=== PATIENT | male | born 1980 | race Caucasian/White ===

== ENCOUNTER 2018-06-30 21:14 | Inpatient (IN) | payer MEDICARE, OTHER ==
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
[2018-06-30 21:47] LABS: HEMOGLOBIN 9.8 gm/dL (12-16); LYMPHOCYTE ABSOLUTE 1.1 Th/cmm (1.5-3.0)
[2018-06-30 21:50] LABS: % BASOPHILS 1.7 % (0.0-2.0); % EOSINOPHILS 2.1 % (0.0-5.0); % LYMPHOCYTES 16.6 % (20.0-50.0); % MONOCYTES 8.7 % (2.0-10.0); % NEUTROPHILS 70.9 % (40.0-80.0); BASOPHILE ABSOLUTE 0.1 Th/cumm (0-0.2); EOSINOPHILE ABSOLUTE 0.1 Th/cmm (0.1-0.4); HEMATOCRIT 30.9 % (41.0-60); MEAN CORPUSCULAR HEMOGLOBIN 20.6 pg (26.0-30.0); MEAN CORPUSCULAR HGB CONC 31.5 pg (28.0-36.0); MEAN PLATELET VOLUME 8.8 fl; MONOCYTE ABSOLUTE 0.6 Th/cmm (0.3-1.0); NEUTROPHILE ABSOLUTE 4.7 Th/cmm (1.8-8.0); PLATELET COUNT 309 Th/cmm (150-400); RED BLOOD COUNT 4.74 Mil/cmm (4.30-5.70); RED CELL DISTRIBUTION WIDTH 17.5 % (11.5-20.0); WHITE BLOOD COUNT 6.6 Th/cmm (4.8-10.8)
[2018-06-30 21:52] LABS: MEAN CELL VOLUME 65.3 fl (80-99)
[2018-06-30 22:01] LABS: ALB/GLOB RATIO 1.4 (1.0-1.8); ALKALINE PHOSPHATASE 54 U/L (34-104); ANION GAP 12.4 (7.0-16.0); BILIRUBIN,TOTAL 0.5 mg/dL (0.3-1.0); BUN - UREA NITROGEN 9 mg/dL (7-25); CALCIUM SERUM 9.2 mg/dL (8.6-10.3); CARBON DIOXIDE 27.3 mEq/L (21.0-31.0); CHLORIDE 101 mEq/L (98-107); CREATININE - SERUM 0.8 mg/dL (0.7-1.3); GFR AFRICAN-AMERICAN > 60.0 ml/min (>90); GFR NON AFRICAN-AMERICAN > 60.0 ml/min; GLUCOSE 87 mg/dL (70-105); POTASSIUM SERUM 3.7 mEq/L (3.5-5.1); SGOT 11 U/L (13-39); SGPT/ALT 7 U/L (7-52); SODIUM SERUM 137 mEq/L (136-145); TOTAL PROTEIN,SERUM 6.8 gm/dL (6.0-8.3)
[2018-07-01] MEDS ORDERED: Sodium Chloride 0.9% 1,000 ML IV ONE ×2 (00:04→02:35)
[2018-07-01] MEDS ORDERED: Piperacillin Sodium/Tazobact 3.375 gm Vial IV ONE (00:25)
[2018-07-01] MEDS ORDERED: Triple Antibiotic 0.94 gm Pkt TP ONE (00:45)
[2018-07-01] MEDS ORDERED: Triple Antibiotic 0.94 gm Pkt TP STA (01:03)
[2018-07-01 01:31] LABS: URINE SOURCE CLEAN C
[2018-07-01 01:34] LABS: URINE BILIRUBIN NEGATIVE (NEGATIVE); URINE BLOOD NEGATIVE (NEGATIVE); URINE GLUCOSE (UA) NEGATIVE (NEGATIVE); URINE KETONE NEGATIVE (NEGATIVE); URINE LEUKOCYTE ESTERASE NEGATIVE (NEGATIVE); URINE NITRATE NEGATIVE (NEGATIVE); URINE PROTEIN NEGATIVE (NEGATIVE); URINE UROBILINOGEN 0.2 E.U./dL (0.2 - 1.0)
[2018-07-01 01:37] LABS: URINE CLARITY CLEAR (CLEAR); URINE COLOR YELLOW; URINE MICROSCOPIC INDICATED? NO
[2018-07-01 03:48] VITALS: BP 97/61
--- NOTE | 2018-07-01 08:25 | Diagnostic Imaging Report ---
Exam: Left knee joint HISTORY: Status post fall Multiple views of the left knee joint reviewed. The study demonstrates no evidence for acute fracture or dislocation. There is no evidence for joint effusion. No soft tissue swelling is noted. The patella is intact. Small 8 mm degenerative calcification is noted in suprapatellar area IMPRESSION essentially unremarkable examination of left knee joint.
[2018-07-01] MEDS: Vancomycin HCl 1.5 GM in Sodium Chloride 0.9% 500 ML IV SCH (14:02)
[2018-07-01] MEDS ORDERED: Morphine Sulfate 2 mg/mL 1mL Syr IVP PRN (19:01)
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
--- NOTE | 2018-07-01 20:39 | Internal Medicine Prog Note ---
Internal Medicine Subjective - Subjective Service Date: 07/01/18 Patient seen and examined:: with staff, chart reviewed Patient is:: awake, other (Severe Bilateral knee pain, Bilateral leg wounds with some skin lesions.) Patient Complaints of:: other (Hx of Cerebral palsy.) Per staff patient has:: other (Severe Neuropathy.) Internal Medicine Objective - Results Result Diagrams: 06/30/18 21:37 06/30/18 21:37 Recent Labs: Laboratory Last Values WBC 6.6 Th/cmm (4.8-10.8) 06/30/18 21:37 RBC 4.74 Mil/cmm (4.30-5.70) 06/30/18 21:37 Hgb 9.8 gm/dL (12-16) L 06/30/18 21:37 Hct 30.9 % (41.0-60) L 06/30/18 21:37 MCV 65.3 fl (80-99) L 06/30/18 21:37 MCH 20.6 pg (26.0-30.0) L 06/30/18 21:37 MCHC Differential 31.5 pg (28.0-36.0) 06/30/18 21:37 RDW 17.5 % (11.5-20.0) 06/30/18 21:37 Plt Count 309 Th/cmm (150-400) 06/30/18 21:37 MPV 8.8 fl 06/30/18 21:37 Neutrophils % 70.9 % (40.0-80.0) 06/30/18 21:37 Lymphocytes % 16.6 % (20.0-50.0) L 06/30/18 21:37 Monocytes % 8.7 % (2.0-10.0) 06/30/18 21:37 Eosinophils % 2.1 % (0.0-5.0) 06/30/18 21:37 Basophils % 1.7 % (0.0-2.0) 06/30/18 21:37 Sodium 137 mEq/L (136-145) 06/30/18 21:37 Potassium 3.7 mEq/L (3.5-5.1) 06/30/18 21:37 Chloride 101 mEq/L (98-107) 06/30/18 21:37 Carbon Dioxide 27.3 mEq/L (21.0-31.0) 06/30/18 21:37 Anion Gap 12.4 (7.0-16.0) 06/30/18 21:37 BUN 9 mg/dL (7-25) 06/30/18 21:37 Creatinine 0.8 mg/dL (0.7-1.3) 06/30/18 21:37 Est GFR ( Amer) > 60.0 ml/min (>90) 06/30/18 21:37 Est GFR (Non-Af Amer) > 60.0 ml/min 06/30/18 21:37 BUN/Creatinine Ratio 11.3 06/30/18 21:37 Glucose 87 mg/dL (70-105) 06/30/18 21:37 Calcium 9.2 mg/dL (8.6-10.3) 06/30/18 21:37 Total Bilirubin 0.5 mg/dL (0.3-1.0) 06/30/18 21:37 AST 11 U/L (13-39) L 06/30/18 21:37 ALT 7 U/L (7-52) 06/30/18 21:37 Alkaline Phosphatase 54 U/L (34-104) 06/30/18 21:37 Total Protein 6.8 gm/dL (6.0-8.3) 06/30/18 21:37 Albumin 4.0 gm/dL (4.2-5.5) L 06/30/18 21:37 Globulin 2.8 gm/dL 06/30/18 21:37 Albumin/Globulin Ratio 1.4 (1.0-1.8) 06/30/18 21:37 Urine Source CLEAN C 06/30/18 22:30 Urine Color YELLOW 06/30/18 22:30 Urine Clarity CLEAR (CLEAR) 06/30/18 22:30 Urine pH 8.0 (4.6 - 8.0) 06/30/18 22:30 Ur Specific [place] 1.015 (1.005-1.030) 06/30/18 22:30 Urine Protein NEGATIVE mg/dL (NEGATIVE) 06/30/18 22:30 Urine Glucose (UA) NEGATIVE mg/dL (NEGATIVE) 06/30/18 22:30 Urine Ketones NEGATIVE mg/dL (NEGATIVE) 06/30/18 22:30 Urine Blood NEGATIVE (NEGATIVE) 06/30/18 22:30 Urine Nitrate NEGATIVE (NEGATIVE) 06/30/18 22:30 Urine Bilirubin NEGATIVE (NEGATIVE) 06/30/18 22:30 Urine Urobilinogen 0.2 E.U./dL (0.2 - 1.0) 06/30/18 22:30 Ur Leukocyte Esterase NEGATIVE (NEGATIVE) 06/30/18 22:30 - Physical Exam Vitals and I&O: Vital Signs Temp 100.3 F 07/01/18 20:00 Pulse 79 07/01/18 20:00 Resp 20 07/01/18 20:00 BP 97/55 07/01/18 20:00 Pulse Ox 95 07/01/18 20:00 Intake & Output 07/01/18 07/01/18 07/02/18 06:59 18:59 06:59 Intake Total 50 1375 Output Total 1500 Balance 50 -125 Weight (lbs) 113.398 kg 113.398 kg Intake: Intake, IV Amount 50 Piperacillin Sodium/ 50 Tazobact 3.375 gm In Sodium Chloride 0.9% 50 ml @ 100 mls/hr IV Q6HR [facility] Rx#:[id number] Oral 1375 Output: Urine 1500 Other: Weight Source [facility] Active Medications: Current Medications Gabapentin (Neurontin) 300 mg PO BID [facility] Stop: 08/31/18 08:59 Piperacillin Sod/Tazobactam (Sod 3.375 gm/ Sodium Chloride) 50 mls @ 100 mls/ hr IV Q6HR [facility] Stop: 08/30/18 11:59 Last Admin: 07/01/18 18:29 Dose: 100 mls/hr Vancomycin HCl 1.5 gm/ Sodium (Chloride) 500 mls @ 250 mls/hr IV Q12H [facility] Stop: 08/30/18 12:59 Last Admin: 07/01/18 14:02 Dose: 250 mls/hr Ibuprofen (Advil) 400 mg PO QID PRN PRN Reason: Pain (Mild) Stop: 08/30/18 18:58 Miscellaneous (Zosyn Iv Per Pharmacy) 1 ea MC PRN PRN PRN Reason: PROTOCOL Stop: 08/30/18 11:21 Miscellaneous (Vancomycin Iv Per Pharmacy) 1 ea PRN PRN PRN Reason: Leg Swelling Stop: 08/30/18 11:21 Morphine Sulfate (Morphine) 1 mg IVP Q2HR PRN PRN Reason: Pain (Moderate) Stop: 08/30/18 19:00 Morphine Sulfate (Morphine) 2 mg IVP Q4HR PRN PRN Reason: Pain (Severe) Stop: 08/30/18 19:06 Ondansetron HCl (Zofran Odt) 4 mg PO Q6H PRN PRN Reason: Nausea / Vomiting Stop: 08/30/18 19:42 Physical Exam: 38 y/o homeless male patient has hx of cerebral palsy. Patient c/o severe bilateral knee pain and bilateral knee wounds with some skin lesions. General: weak, other (Severe neuropathy.) HEENT: NC/AT, PERRLA Neck: Supple, No JVD Lungs: CTAB Cardiovascular: RRR, Normal S1 Abdomen: soft, non-tender Extremities: edema, pain, other Neurological: alert, muscle weakness, unsteady (Multiple skin lesions on bilateral leg pain, Hx of Arthritis.) Internal Medicine Assmt/Plan - Assessment Assessment: Arthritis Severe Neuropathy Severe Bilateral leg pain Bilateral leg wounds with some skin lesions Hx of Cerebral palsy - Plan Plan: Conttinuation of care Monitor Vitals, Labs, Diet Continue IV antibiotics and meds as directed Fall precaution Followup with Dr. Sharan Harrison and Dr. Lupillo Harrison Pain management Continue present care management Nutritional Asmnt/Malnutr-PDOC - Dietary Evaluation Malnutrition Findings (Please click <Entered> for more info): see orders
[2018-07-01] MEDS: Morphine Sulfate 2 mg/mL 1mL Syr IVP PRN (21:00)
[2018-07-02] MEDS: Vancomycin HCl 1.5 GM in Sodium Chloride 0.9% 500 ML IV SCH ×2 (00:35→13:02)
[2018-07-02] MEDS: Morphine Sulfate 2 mg/mL 1mL Syr IVP PRN ×4 (00:40→20:57)
--- NOTE | 2018-07-02 04:49 | Consultation ---
DATE OF CONSULTATION: 07/01/2018 INFECTIOUS DISEASE CONSULTATION REFERRING PHYSICIAN: Angelito Sorensen M.D. REASON FOR CONSULTATION: Bilateral leg cellulitis and wounds. HISTORY OF PRESENT ILLNESS: The patient is a 38-year-old male with past medical history of arthritis and neuropathy, developed bilateral leg wounds with pain. It was associated with some redness. ID consult was called for further antibiotic management. Meanwhile, the patient was already started on vancomycin and Zosyn. Blood culture so far negative. On initial evaluation the patient's temperature was 97.9, it went up to 100.3 degrees Fahrenheit. His WBC count is 6600. PAST MEDICAL HISTORY: Includes arthritis, cerebral palsy, neuropathy, homelessness. ALLERGIES: NKDA. MEDICATIONS: As per medication reconciliation sheet. Antibiotic bishop, the patient is on vancomycin and Zosyn. FAMILY HISTORY: Not available. REVIEW OF SYSTEMS: GENERAL: The patient has low-grade fever. No chills. No diaphoresis. No generalized weakness. HEENT: No diplopia. No photophobia. No sore throat. RESPIRATORY: No cough. No shortness of breath. CARDIOVASCULAR: No chest pain. No palpitation. GASTROINTESTINAL: No nausea. No vomiting. No diarrhea. No constipation. GENITOURINARY: No dysuria. NEUROLOGIC: No headache. No dizziness. No focal weakness. SKIN: The patient has ulcers on both the lower extremities. LABORATORY DATA: Current lab shows WBC count is 6600, hemoglobin is 9.8, hematocrit 30.9, platelets are 309,000, neutrophils 70.9%. Sodium 137, potassium 3.7, chloride 101, bicarbonate is 27, BUN is 9, creatinine 0.8, glucose is 87. Urinalysis shows negative nitrite and negative leukocyte esterase. IMPRESSION: 1. Right leg wound and right leg cellulitis. 2. Left leg wound and left leg cellulitis. 3. Cerebral palsy. 4. Arthritis. RECOMMENDATIONS: We will continue vancomycin and Zosyn, and depending on the wound culture and clinical course, we will define final antibiotic therapy. Thank you, Dr. Sorensen for involving me in taking care of this patient. JOB# [id number] [facility]
[2018-07-02 07:34] LABS: ALB/GLOB RATIO 1.2 (1.0-1.8); ALBUMIN 3.5 gm/dL (4.2-5.5); ALKALINE PHOSPHATASE 44 U/L (34-104); ANION GAP 11.7 (7.0-16.0); BILIRUBIN,TOTAL 0.4 mg/dL (0.3-1.0); BUN - UREA NITROGEN 7 mg/dL (7-25); CALCIUM SERUM 8.6 mg/dL (8.6-10.3); CARBON DIOXIDE 23.1 mEq/L (21.0-31.0); CHLORIDE 108 mEq/L (98-107); CREATININE - SERUM 0.7 mg/dL (0.7-1.3); GFR AFRICAN-AMERICAN > 60.0 ml/min (>90); GFR NON AFRICAN-AMERICAN > 60.0 ml/min; GLUCOSE 78 mg/dL (70-105); POTASSIUM SERUM 3.8 mEq/L (3.5-5.1); SGOT 9 U/L (13-39); SGPT/ALT 7 U/L (7-52); SODIUM SERUM 139 mEq/L (136-145); TOTAL PROTEIN,SERUM 6.4 gm/dL (6.0-8.3)
[2018-07-02 12:11] LABS: HEMOGLOBIN 9.3 gm/dL (12-16); MEAN CORPUSCULAR HEMOGLOBIN 20.3 pg (26.0-30.0); MEAN CORPUSCULAR HGB CONC 30.9 pg (28.0-36.0); MEAN PLATELET VOLUME 10.6 fl; PLATELET COUNT 253 Th/cmm (150-400); RED BLOOD COUNT 4.55 Mil/cmm (4.30-5.70); RED CELL DISTRIBUTION WIDTH 17.5 % (11.5-20.0); WHITE BLOOD COUNT 6.5 Th/cmm (4.8-10.8)
[2018-07-02 12:17] LABS: BAND NEUTROPHILE 0 % (0-10); BASOPHIL 0 % (0-3); EOSINOPHIL 2 % (0-5); LYMPHOCYTE 18 % (20-50); MONOCYTE 6 % (2-10); NEUTROPHILS 74 % (40-80)
--- NOTE | 2018-07-02 13:21 | Internal Medicine Prog Note ---
Internal Medicine Subjective - Subjective Service Date: 07/02/18 Patient is:: awake, other (Severe Bilateral knee pain, Bilateral leg wounds with some skin lesions.) Patient Complaints of:: other (Hx of Cerebral palsy.) Per staff patient has:: other (Severe Neuropathy.) Internal Medicine Objective - Results Result Diagrams: 07/02/18 06:16 07/02/18 06:16 Recent Labs: Laboratory Last Values WBC 6.5 Th/cmm (4.8-10.8) 07/02/18 06:16 RBC 4.55 Mil/cmm (4.30-5.70) 07/02/18 06:16 Hgb 9.3 gm/dL (12-16) L 07/02/18 06:16 Hct 30.0 % (41.0-60) L 07/02/18 06:16 MCV 65.3 fl (80-99) L 06/30/18 21:37 MCH 20.3 pg (26.0-30.0) L 07/02/18 06:16 MCHC Differential 30.9 pg (28.0-36.0) 07/02/18 06:16 RDW 17.5 % (11.5-20.0) 07/02/18 06:16 Plt Count 253 Th/cmm (150-400) 07/02/18 06:16 MPV 10.6 fl 07/02/18 06:16 Add Manual Diff YES 07/02/18 06:16 Neutrophils % DESK MAKER 07/02/18 06:16 Band Neutrophils % 0 % (0-10) 07/02/18 06:16 Lymphocytes % DESK MAKER 07/02/18 06:16 Monocytes % DESK MAKER 07/02/18 06:16 Eosinophils % DESK MAKER 07/02/18 06:16 Basophils % DESK MAKER 07/02/18 06:16 Neutrophils (Manual) 74 % (40-80) 07/02/18 06:16 Lymphocytes 18 % (20-50) L 07/02/18 06:16 Monocytes 6 % (2-10) 07/02/18 06:16 Eosinophils 2 % (0-5) 07/02/18 06:16 Basophils 0 % (0-3) 07/02/18 06:16 Microcytosis 3+ 07/02/18 06:16 Sodium 139 mEq/L (136-145) 07/02/18 06:16 Potassium 3.8 mEq/L (3.5-5.1) 07/02/18 06:16 Chloride 108 mEq/L (98-107) H 07/02/18 06:16 Carbon Dioxide 23.1 mEq/L (21.0-31.0) 07/02/18 06:16 Anion Gap 11.7 (7.0-16.0) 07/02/18 06:16 BUN 7 mg/dL (7-25) 07/02/18 06:16 Creatinine 0.7 mg/dL (0.7-1.3) 07/02/18 06:16 Est GFR ( Amer) > 60.0 ml/min (>90) 07/02/18 06:16 Est GFR (Non-Af Amer) > 60.0 ml/min 07/02/18 06:16 BUN/Creatinine Ratio 10.0 07/02/18 06:16 Glucose 78 mg/dL (70-105) 07/02/18 06:16 Calcium 8.6 mg/dL (8.6-10.3) 07/02/18 06:16 Total Bilirubin 0.4 mg/dL (0.3-1.0) 07/02/18 06:16 AST 9 U/L (13-39) L 07/02/18 06:16 ALT 7 U/L (7-52) 07/02/18 06:16 Alkaline Phosphatase 44 U/L (34-104) 07/02/18 06:16 Total Protein 6.4 gm/dL (6.0-8.3) 07/02/18 06:16 Albumin 3.5 gm/dL (4.2-5.5) L 07/02/18 06:16 Globulin 2.9 gm/dL 07/02/18 06:16 Albumin/Globulin Ratio 1.2 (1.0-1.8) 07/02/18 06:16 Urine Source CLEAN C 06/30/18 22:30 Urine Color YELLOW 06/30/18 22:30 Urine Clarity CLEAR (CLEAR) 06/30/18 22:30 Urine pH 8.0 (4.6 - 8.0) 06/30/18 22:30 Ur Specific [place] 1.015 (1.005-1.030) 06/30/18 22:30 Urine Protein NEGATIVE mg/dL (NEGATIVE) 06/30/18 22:30 Urine Glucose (UA) NEGATIVE mg/dL (NEGATIVE) 06/30/18 22:30 Urine Ketones NEGATIVE mg/dL (NEGATIVE) 06/30/18 22:30 Urine Blood NEGATIVE (NEGATIVE) 06/30/18 22:30 Urine Nitrate NEGATIVE (NEGATIVE) 06/30/18 22:30 Urine Bilirubin NEGATIVE (NEGATIVE) 06/30/18 22:30 Urine Urobilinogen 0.2 E.U./dL (0.2 - 1.0) 06/30/18 22:30 Ur Leukocyte Esterase NEGATIVE (NEGATIVE) 06/30/18 22:30 Vancomycin Trough 11.2 ug/mL (5-10) H 07/02/18 12:00 - Physical Exam Vitals and I&O: Vital Signs Temp 97.5 F 07/02/18 12:00 Pulse 67 07/02/18 12:00 Resp 19 07/02/18 12:00 BP 97/53 07/02/18 12:00 Pulse Ox 100 07/02/18 12:00 Intake & Output 07/01/18 07/02/18 07/02/18 18:59 06:59 18:59 Intake Total 600 1975 Output Total 1500 Balance 600 475 Weight (lbs) 250 lb Intake: Intake, IV Amount 600 600 Piperacillin Sodium/ 100 100 Tazobact 3.375 gm In Sodium Chloride 0.9% 50 ml @ 100 mls/hr IV Q6HR [facility] Rx#:[id number] Vancomycin HCl 1.5 gm In 500 500 Sodium Chloride 0.9% 500 ml @ 250 mls/hr IV Q12H [facility] Rx#:[id number] Oral 1375 Output: Urine 1500 Other: Weight Source Bedscale Active Medications: Current Medications [place] Oil/[place] Balsam/Trypsin (Venelex) 1 appl TP DAILY [facility] Stop: 08/31/18 12:59 Gabapentin (Neurontin) 300 mg PO BID [facility] Stop: 08/31/18 08:59 Last Admin: 07/02/18 08:51 Dose: 300 mg Piperacillin Sod/Tazobactam (Sod 3.375 gm/ Sodium Chloride) 50 mls @ 100 mls/ hr IV Q6HR [facility] Stop: 08/30/18 11:59 Last Admin: 07/02/18 12:24 Dose: 100 mls/hr Vancomycin HCl 1.5 gm/ Sodium (Chloride) 500 mls @ 250 mls/hr IV Q12H [facility] Stop: 08/30/18 12:59 Last Admin: 07/02/18 13:02 Dose: 250 mls/hr Ibuprofen (Advil) 400 mg PO QID PRN PRN Reason: Pain (Mild) Stop: 08/30/18 18:58 Miscellaneous (Zosyn Iv Per Pharmacy) 1 ea PRN PRN PRN Reason: PROTOCOL Stop: 08/30/18 11:21 Miscellaneous (Vancomycin Iv Per Pharmacy) 1 ea PRN PRN PRN Reason: Leg Swelling Stop: 08/30/18 11:21 Morphine Sulfate (Morphine) 1 mg IVP Q2HR PRN PRN Reason: Pain (Moderate) Stop: 08/30/18 19:00 Morphine Sulfate (Morphine) 2 mg IVP Q4HR PRN PRN Reason: Pain (Severe) Stop: 08/30/18 19:06 Last Admin: 07/02/18 11:37 Dose: 2 mg Ondansetron HCl (Zofran Odt) 4 mg PO Q6H PRN PRN Reason: Nausea / Vomiting Stop: 08/30/18 19:42 General: weak, other (Severe neuropathy.) HEENT: NC/AT, PERRLA Neck: Supple, No JVD Lungs: CTAB Cardiovascular: RRR, Normal S1 Abdomen: soft, non-tender Extremities: edema, pain, other Neurological: alert, muscle weakness, unsteady (Multiple skin lesions on bilateral leg pain, Hx of Arthritis.) Internal Medicine Assmt/Plan - Assessment Assessment: Arthritis Severe Neuropathy Severe Bilateral leg pain Bilateral leg wounds with some skin lesions Hx of Cerebral palsy - Plan Plan: Conttinuation of care Monitor Vitals, Labs, Diet Continue IV antibiotics and meds as directed Fall precaution Followup with Dr. Sharan Harrison and Dr. Lupillo Harrison Pain management Continue present care management
[2018-07-02 13:43] LABS: MEAN CELL VOLUME 65.8 fl (80-99)
[2018-07-02] MEDS: Venelex 60gm Tube TP SCH (17:46)
[2018-07-03] MEDS: Vancomycin HCl 1.5 GM in Sodium Chloride 0.9% 500 ML IV SCH ×2 (01:35→13:08)
[2018-07-03 06:58] LABS: HEMATOCRIT 30.1 % (41.0-60); HEMOGLOBIN 9.7 gm/dL (12-16); MEAN CORPUSCULAR HEMOGLOBIN 20.8 pg (26.0-30.0); MEAN CORPUSCULAR HGB CONC 32.3 pg (28.0-36.0); PLATELET COUNT 264 Th/cmm (150-400); RED BLOOD COUNT 4.68 Mil/cmm (4.30-5.70); RED CELL DISTRIBUTION WIDTH 17.3 % (11.5-20.0); WHITE BLOOD COUNT 6.4 Th/cmm (4.8-10.8)
[2018-07-03 07:02] LABS: ANION GAP 11.2 (7.0-16.0); BUN - UREA NITROGEN 9 mg/dL (7-25); CALCIUM SERUM 8.7 mg/dL (8.6-10.3); CARBON DIOXIDE 23.6 mEq/L (21.0-31.0); CHLORIDE 108 mEq/L (98-107); CREATININE - SERUM 0.7 mg/dL (0.7-1.3); GFR AFRICAN-AMERICAN > 60.0 ml/min (>90); GFR NON AFRICAN-AMERICAN > 60.0 ml/min; GLUCOSE 81 mg/dL (70-105); MEAN CELL VOLUME 64.2 fl (80-99); POTASSIUM SERUM 3.8 mEq/L (3.5-5.1); SODIUM SERUM 139 mEq/L (136-145)
[2018-07-03 08:05] LABS: BASOPHIL 1 % (0-3); EOSINOPHIL 2 % (0-5); LYMPHOCYTE 21 % (20-50); MONOCYTE 6 % (2-10); NEUTROPHILS 70 % (40-80); PLATELET ESTIMATE ADEQUATE (NORMAL)
[2018-07-03 08:06] LABS: HYPOCHROMIA 2+
--- NOTE | 2018-07-03 10:28 | Infectious Disease Prog Note ---
Infectious Disease Subjective - Review of Systems Service Date: 07/03/18 Subjective: There is no new change, no fever. Infectious Disease Objective - Results Result Diagrams: 07/03/18 05:40 07/03/18 05:40 Recent Labs: Laboratory Last Values WBC 6.4 Th/cmm (4.8-10.8) 07/03/18 05:40 RBC 4.68 Mil/cmm (4.30-5.70) 07/03/18 05:40 Hgb 9.7 gm/dL (12-16) L 07/03/18 05:40 Hct 30.1 % (41.0-60) L 07/03/18 05:40 MCV 64.2 fl (80-99) L 07/03/18 05:40 MCH 20.8 pg (26.0-30.0) L 07/03/18 05:40 MCHC Differential 32.3 pg (28.0-36.0) 07/03/18 05:40 RDW 17.3 % (11.5-20.0) 07/03/18 05:40 Plt Count 264 Th/cmm (150-400) 07/03/18 05:40 MPV 10.0 fl 07/03/18 05:40 Add Manual Diff YES 07/03/18 05:40 Neutrophils % FOOD CASHIER 07/02/18 06:16 Band Neutrophils % 0 % (0-10) 07/02/18 06:16 Lymphocytes % FOOD CASHIER 07/02/18 06:16 Monocytes % FOOD CASHIER 07/02/18 06:16 Eosinophils % FOOD CASHIER 07/02/18 06:16 Basophils % FOOD CASHIER 07/02/18 06:16 Neutrophils (Manual) 70 % (40-80) 07/03/18 05:40 Lymphocytes 21 % (20-50) 07/03/18 05:40 Monocytes 6 % (2-10) 07/03/18 05:40 Eosinophils 2 % (0-5) 07/03/18 05:40 Basophils 1 % (0-3) 07/03/18 05:40 Hypochromia 2+ 07/03/18 05:40 Platelet Estimate ADEQUATE (NORMAL) 07/03/18 05:40 Microcytosis 2+ 07/03/18 05:40 Sodium 139 mEq/L (136-145) 07/03/18 05:40 Potassium 3.8 mEq/L (3.5-5.1) 07/03/18 05:40 Chloride 108 mEq/L (98-107) H 07/03/18 05:40 Carbon Dioxide 23.6 mEq/L (21.0-31.0) 07/03/18 05:40 Anion Gap 11.2 (7.0-16.0) 07/03/18 05:40 BUN 9 mg/dL (7-25) 07/03/18 05:40 Creatinine 0.7 mg/dL (0.7-1.3) 07/03/18 05:40 Est GFR ( Amer) > 60.0 ml/min (>90) 07/03/18 05:40 Est GFR (Non-Af Amer) > 60.0 ml/min 07/03/18 05:40 BUN/Creatinine Ratio 12.9 07/03/18 05:40 Glucose 81 mg/dL (70-105) 07/03/18 05:40 Calcium 8.7 mg/dL (8.6-10.3) 07/03/18 05:40 Total Bilirubin 0.4 mg/dL (0.3-1.0) 07/02/18 06:16 AST 9 U/L (13-39) L 07/02/18 06:16 ALT 7 U/L (7-52) 07/02/18 06:16 Alkaline Phosphatase 44 U/L (34-104) 07/02/18 06:16 Total Protein 6.4 gm/dL (6.0-8.3) 07/02/18 06:16 Albumin 3.5 gm/dL (4.2-5.5) L 07/02/18 06:16 Globulin 2.9 gm/dL 07/02/18 06:16 Albumin/Globulin Ratio 1.2 (1.0-1.8) 07/02/18 06:16 Urine Source CLEAN C 06/30/18 22:30 Urine Color YELLOW 06/30/18 22:30 Urine Clarity CLEAR (CLEAR) 06/30/18 22:30 Urine pH 8.0 (4.6 - 8.0) 06/30/18 22:30 Ur Specific [place] 1.015 (1.005-1.030) 06/30/18 22:30 Urine Protein NEGATIVE mg/dL (NEGATIVE) 06/30/18 22:30 Urine Glucose (UA) NEGATIVE mg/dL (NEGATIVE) 06/30/18 22:30 Urine Ketones NEGATIVE mg/dL (NEGATIVE) 06/30/18 22:30 Urine Blood NEGATIVE (NEGATIVE) 06/30/18 22:30 Urine Nitrate NEGATIVE (NEGATIVE) 06/30/18 22:30 Urine Bilirubin NEGATIVE (NEGATIVE) 06/30/18 22:30 Urine Urobilinogen 0.2 E.U./dL (0.2 - 1.0) 06/30/18 22:30 Ur Leukocyte Esterase NEGATIVE (NEGATIVE) 06/30/18 22:30 Vancomycin Trough 11.2 ug/mL (5-10) H 07/02/18 12:00 - Physical Exam Vitals and I&O: Vital Signs Temp 97.3 F 07/03/18 09:01 Pulse 63 07/03/18 09:01 Resp 20 07/03/18 09:57 BP 121/71 07/03/18 09:01 Pulse Ox 99 07/03/18 09:01 Intake & Output 07/02/18 07/03/18 07/03/18 18:59 06:59 18:59 Intake Total 550 1050 Output Total 1000 Balance 550 50 Weight (lbs) 113.398 kg Intake: Intake, IV Amount 550 50 Piperacillin Sodium/ 50 50 Tazobact 3.375 gm In Sodium Chloride 0.9% 50 ml @ 100 mls/hr IV Q6HR [facility] Rx#:[id number] Vancomycin HCl 1.5 gm In 500 Sodium Chloride 0.9% 500 ml @ 250 mls/hr IV Q12H [facility] Rx#:[id number] Oral 1000 Output: Urine 1000 Other: Weight Source Bedscale Active Medications: Current Medications [place] Oil/[place] Balsam/Trypsin (Venelex) 1 appl TP DAILY [facility] Stop: 08/31/18 12:59 Last Admin: 07/02/18 17:46 Dose: 1 appl Gabapentin (Neurontin) 300 mg PO BID [facility] Stop: 08/31/18 08:59 Last Admin: 07/03/18 10:15 Dose: 300 mg Piperacillin Sod/Tazobactam (Sod 3.375 gm/ Sodium Chloride) 50 mls @ 100 mls/ hr IV Q6HR [facility] Stop: 08/30/18 11:59 Last Admin: 07/03/18 03:34 Dose: 100 mls/hr Vancomycin HCl 1.5 gm/ Sodium (Chloride) 500 mls @ 250 mls/hr IV Q12H [facility] Stop: 08/30/18 12:59 Last Admin: 07/03/18 01:35 Dose: 250 mls/hr Ibuprofen (Advil) 400 mg PO QID PRN PRN Reason: Pain (Mild) Stop: 08/30/18 18:58 Last Admin: 07/03/18 10:26 Dose: 400 mg Miscellaneous (Zosyn Iv Per Pharmacy) 1 ea MC PRN PRN PRN Reason: PROTOCOL Stop: 08/30/18 11:21 Miscellaneous (Vancomycin Iv Per Pharmacy) 1 ea MC PRN PRN PRN Reason: Leg Swelling Stop: 08/30/18 11:21 Morphine Sulfate (Morphine) 1 mg IVP Q2HR PRN PRN Reason: Pain (Moderate) Stop: 08/30/18 19:00 Morphine Sulfate (Morphine) 2 mg IVP Q4HR PRN PRN Reason: Pain (Severe) Stop: 08/30/18 19:06 Last Admin: 07/02/18 20:57 Dose: 2 mg Ondansetron HCl (Zofran Odt) 4 mg PO Q6H PRN PRN Reason: Nausea / Vomiting Stop: 08/30/18 19:42 General: no acute distress, well developed, well nourished HEENT: atraumatic, normocephalic, PERRLA, EOMI, moist mucous membrane Neck: supple, no thyromegaly, no lymphadenopathy Cardiovascular: S1S2, regular Lungs: clear to auscultation bilaterally, clear to percussion Abdomen: soft, no tender, no distended, no mass, no rebound, no hepatomegaly, no splenomegaly Extremities: no cyanosis, no clubbing, no edema Neurological: awake, alert, oriented, other (Right leg wound.) Skin: intact Infectious Disease Assmt/Plan - Assessment Assessment: 1. Right leg wound and right leg cellulitis. 2. Left leg wound and left leg cellulitis. 3. Cerebral palsy. 4. Arthritis. - Plan Plan: continue vancomycin and Zosyn, and depending on the wound culture and clinical course, we will define final antibiotic therapy.
[2018-07-03] MEDS: Venelex 60gm Tube TP SCH (11:51)
--- NOTE | 2018-07-03 13:02 | Internal Medicine Prog Note ---
Internal Medicine Subjective - Subjective Service Date: 07/03/18 Patient is:: awake, other Patient Complaints of:: other (Hx of Cerebral palsy.) Per staff patient has:: other (Severe Neuropathy.) Internal Medicine Objective - Results Result Diagrams: 07/03/18 05:40 07/03/18 05:40 Recent Labs: Laboratory Last Values WBC 6.4 Th/cmm (4.8-10.8) 07/03/18 05:40 RBC 4.68 Mil/cmm (4.30-5.70) 07/03/18 05:40 Hgb 9.7 gm/dL (12-16) L 07/03/18 05:40 Hct 30.1 % (41.0-60) L 07/03/18 05:40 MCV 64.2 fl (80-99) L 07/03/18 05:40 MCH 20.8 pg (26.0-30.0) L 07/03/18 05:40 MCHC Differential 32.3 pg (28.0-36.0) 07/03/18 05:40 RDW 17.3 % (11.5-20.0) 07/03/18 05:40 Plt Count 264 Th/cmm (150-400) 07/03/18 05:40 MPV 10.0 fl 07/03/18 05:40 Add Manual Diff YES 07/03/18 05:40 Neutrophils % RECIPROCATING DRILL OPERATOR 07/02/18 06:16 Band Neutrophils % 0 % (0-10) 07/02/18 06:16 Lymphocytes % RECIPROCATING DRILL OPERATOR 07/02/18 06:16 Monocytes % RECIPROCATING DRILL OPERATOR 07/02/18 06:16 Eosinophils % RECIPROCATING DRILL OPERATOR 07/02/18 06:16 Basophils % RECIPROCATING DRILL OPERATOR 07/02/18 06:16 Neutrophils (Manual) 70 % (40-80) 07/03/18 05:40 Lymphocytes 21 % (20-50) 07/03/18 05:40 Monocytes 6 % (2-10) 07/03/18 05:40 Eosinophils 2 % (0-5) 07/03/18 05:40 Basophils 1 % (0-3) 07/03/18 05:40 Hypochromia 2+ 07/03/18 05:40 Platelet Estimate ADEQUATE (NORMAL) 07/03/18 05:40 Microcytosis 2+ 07/03/18 05:40 Sodium 139 mEq/L (136-145) 07/03/18 05:40 Potassium 3.8 mEq/L (3.5-5.1) 07/03/18 05:40 Chloride 108 mEq/L (98-107) H 07/03/18 05:40 Carbon Dioxide 23.6 mEq/L (21.0-31.0) 07/03/18 05:40 Anion Gap 11.2 (7.0-16.0) 07/03/18 05:40 BUN 9 mg/dL (7-25) 07/03/18 05:40 Creatinine 0.7 mg/dL (0.7-1.3) 07/03/18 05:40 Est GFR ( Amer) > 60.0 ml/min (>90) 07/03/18 05:40 Est GFR (Non-Af Amer) > 60.0 ml/min 07/03/18 05:40 BUN/Creatinine Ratio 12.9 07/03/18 05:40 Glucose 81 mg/dL (70-105) 07/03/18 05:40 Calcium 8.7 mg/dL (8.6-10.3) 07/03/18 05:40 Total Bilirubin 0.4 mg/dL (0.3-1.0) 07/02/18 06:16 AST 9 U/L (13-39) L 07/02/18 06:16 ALT 7 U/L (7-52) 07/02/18 06:16 Alkaline Phosphatase 44 U/L (34-104) 07/02/18 06:16 Total Protein 6.4 gm/dL (6.0-8.3) 07/02/18 06:16 Albumin 3.5 gm/dL (4.2-5.5) L 07/02/18 06:16 Globulin 2.9 gm/dL 07/02/18 06:16 Albumin/Globulin Ratio 1.2 (1.0-1.8) 07/02/18 06:16 Urine Source CLEAN C 06/30/18 22:30 Urine Color YELLOW 06/30/18 22:30 Urine Clarity CLEAR (CLEAR) 06/30/18 22:30 Urine pH 8.0 (4.6 - 8.0) 06/30/18 22:30 Ur Specific [place] 1.015 (1.005-1.030) 06/30/18 22:30 Urine Protein NEGATIVE mg/dL (NEGATIVE) 06/30/18 22:30 Urine Glucose (UA) NEGATIVE mg/dL (NEGATIVE) 06/30/18 22:30 Urine Ketones NEGATIVE mg/dL (NEGATIVE) 06/30/18 22:30 Urine Blood NEGATIVE (NEGATIVE) 06/30/18 22:30 Urine Nitrate NEGATIVE (NEGATIVE) 06/30/18 22:30 Urine Bilirubin NEGATIVE (NEGATIVE) 06/30/18 22:30 Urine Urobilinogen 0.2 E.U./dL (0.2 - 1.0) 06/30/18 22:30 Ur Leukocyte Esterase NEGATIVE (NEGATIVE) 06/30/18 22:30 Vancomycin Trough 11.2 ug/mL (5-10) H 07/02/18 12:00 - Physical Exam Vitals and I&O: Vital Signs Temp 97.4 F 07/03/18 12:00 Pulse 67 07/03/18 12:00 Resp 18 07/03/18 12:00 BP 107/62 07/03/18 12:00 Pulse Ox 98 07/03/18 12:00 Intake & Output 07/02/18 07/03/18 07/03/18 18:59 06:59 18:59 Intake Total 550 1050 Output Total 1000 Balance 550 50 Weight (lbs) 250 lb Intake: Intake, IV Amount 550 50 Piperacillin Sodium/ 50 50 Tazobact 3.375 gm In Sodium Chloride 0.9% 50 ml @ 100 mls/hr IV Q6HR [facility] Rx#:[id number] Vancomycin HCl 1.5 gm In 500 Sodium Chloride 0.9% 500 ml @ 250 mls/hr IV Q12H [facility] Rx#:[id number] Oral 1000 Output: Urine 1000 Other: Weight Source Bedscale Active Medications: Current Medications [place] Oil/[place] Balsam/Trypsin (Venelex) 1 appl TP DAILY [facility] Stop: 08/31/18 12:59 Last Admin: 07/03/18 11:51 Dose: 1 appl Gabapentin (Neurontin) 300 mg PO BID [facility] Stop: 08/31/18 08:59 Last Admin: 07/03/18 10:15 Dose: 300 mg Piperacillin Sod/Tazobactam (Sod 3.375 gm/ Sodium Chloride) 50 mls @ 100 mls/ hr IV Q6HR [facility] Stop: 08/30/18 11:59 Last Admin: 07/03/18 03:34 Dose: 100 mls/hr Vancomycin HCl 1.5 gm/ Sodium (Chloride) 500 mls @ 250 mls/hr IV Q12H [facility] Stop: 08/30/18 12:59 Last Admin: 07/03/18 01:35 Dose: 250 mls/hr Ibuprofen (Advil) 400 mg PO QID PRN PRN Reason: Pain (Mild) Stop: 08/30/18 18:58 Last Admin: 07/03/18 10:26 Dose: 400 mg Miscellaneous (Zosyn Iv Per Pharmacy) 1 ea PRN PRN PRN Reason: PROTOCOL Stop: 08/30/18 11:21 Miscellaneous (Vancomycin Iv Per Pharmacy) 1 ea PRN PRN PRN Reason: Leg Swelling Stop: 08/30/18 11:21 Morphine Sulfate (Morphine) 1 mg IVP Q2HR PRN PRN Reason: Pain (Moderate) Stop: 08/30/18 19:00 Morphine Sulfate (Morphine) 2 mg IVP Q4HR PRN PRN Reason: Pain (Severe) Stop: 08/30/18 19:06 Last Admin: 07/02/18 20:57 Dose: 2 mg Ondansetron HCl (Zofran Odt) 4 mg PO Q6H PRN PRN Reason: Nausea / Vomiting Stop: 08/30/18 19:42 General: weak, other (Severe neuropathy.) HEENT: NC/AT, PERRLA Neck: Supple, No JVD Lungs: CTAB Cardiovascular: RRR, Normal S1 Abdomen: soft, non-tender Extremities: edema, pain, other Neurological: alert, muscle weakness, unsteady (Multiple skin lesions on bilateral leg pain, Hx of Arthritis.) Internal Medicine Assmt/Plan - Assessment Assessment: Arthritis Severe Neuropathy Severe Bilateral leg pain 2/2 cellulitis Hx of Cerebral palsy - Plan Plan: continue ivabx as per ID wound care am labs continue current plan of care
[2018-07-04] MEDS: Vancomycin HCl 1.5 GM in Sodium Chloride 0.9% 500 ML IV SCH ×2 (00:46→14:16)
[2018-07-04 06:52] LABS: % BASOPHILS 0.6 % (0.0-2.0); % EOSINOPHILS 4.1 % (0.0-5.0); % LYMPHOCYTES 19.2 % (20.0-50.0); % MONOCYTES 5.3 % (2.0-10.0); % NEUTROPHILS 70.8 % (40.0-80.0); EOSINOPHILE ABSOLUTE 0.2 Th/cmm (0.1-0.4); HEMOGLOBIN 10.4 gm/dL (12-16); LYMPHOCYTE ABSOLUTE 1.1 Th/cmm (1.5-3.0); MEAN CORPUSCULAR HEMOGLOBIN 20.6 pg (26.0-30.0); MEAN CORPUSCULAR HGB CONC 31.5 pg (28.0-36.0); MEAN PLATELET VOLUME 8.9 fl; MONOCYTE ABSOLUTE 0.3 Th/cmm (0.3-1.0); NEUTROPHILE ABSOLUTE 4.3 Th/cmm (1.8-8.0); PLATELET COUNT 240 Th/cmm (150-400); RED BLOOD COUNT 5.03 Mil/cmm (4.30-5.70); RED CELL DISTRIBUTION WIDTH 17.3 % (11.5-20.0); WHITE BLOOD COUNT 5.9 Th/cmm (4.8-10.8)
[2018-07-04 06:55] LABS: ANION GAP 14.5 (7.0-16.0); BUN - UREA NITROGEN 10 mg/dL (7-25); CARBON DIOXIDE 21.7 mEq/L (21.0-31.0); CHLORIDE 107 mEq/L (98-107); CREATININE - SERUM 0.7 mg/dL (0.7-1.3); GFR AFRICAN-AMERICAN > 60.0 ml/min (>90); GFR NON AFRICAN-AMERICAN > 60.0 ml/min; GLUCOSE 79 mg/dL (70-105); POTASSIUM SERUM 4.2 mEq/L (3.5-5.1); SODIUM SERUM 139 mEq/L (136-145)
[2018-07-04] MEDS: Venelex 60gm Tube TP SCH (08:53)
--- NOTE | 2018-07-04 10:30 | Internal Medicine Prog Note ---
Internal Medicine Subjective - Subjective Service Date: 07/04/18 Patient seen and examined:: with staff, chart reviewed Patient is:: awake Patient Complaints of:: other (Hx of Cerebral palsy.) Per staff patient has:: no episodes of fall, other (Severe Neuropathy.) Internal Medicine Objective - Results Result Diagrams: 07/04/18 05:30 07/04/18 05:30 Recent Labs: Laboratory Last Values WBC 5.9 Th/cmm (4.8-10.8) 07/04/18 05:30 RBC 5.03 Mil/cmm (4.30-5.70) 07/04/18 05:30 Hgb 10.4 gm/dL (12-16) L 07/04/18 05:30 Hct 33.0 % (41.0-60) L 07/04/18 05:30 MCV 64.2 fl (80-99) L 07/03/18 05:40 MCH 20.6 pg (26.0-30.0) L 07/04/18 05:30 MCHC Differential 31.5 pg (28.0-36.0) 07/04/18 05:30 RDW 17.3 % (11.5-20.0) 07/04/18 05:30 Plt Count 240 Th/cmm (150-400) 07/04/18 05:30 MPV 8.9 fl 07/04/18 05:30 Add Manual Diff YES 07/03/18 05:40 Neutrophils % 70.8 % (40.0-80.0) 07/04/18 05:30 Band Neutrophils % 0 % (0-10) 07/02/18 06:16 Lymphocytes % 19.2 % (20.0-50.0) L 07/04/18 05:30 Monocytes % 5.3 % (2.0-10.0) 07/04/18 05:30 Eosinophils % 4.1 % (0.0-5.0) 07/04/18 05:30 Basophils % 0.6 % (0.0-2.0) 07/04/18 05:30 Neutrophils (Manual) 70 % (40-80) 07/03/18 05:40 Lymphocytes 21 % (20-50) 07/03/18 05:40 Monocytes 6 % (2-10) 07/03/18 05:40 Eosinophils 2 % (0-5) 07/03/18 05:40 Basophils 1 % (0-3) 07/03/18 05:40 Hypochromia 2+ 07/03/18 05:40 Platelet Estimate ADEQUATE (NORMAL) 07/03/18 05:40 Microcytosis 2+ 07/03/18 05:40 Sodium 139 mEq/L (136-145) 07/04/18 05:30 Potassium 4.2 mEq/L (3.5-5.1) 07/04/18 05:30 Chloride 107 mEq/L (98-107) 07/04/18 05:30 Carbon Dioxide 21.7 mEq/L (21.0-31.0) 07/04/18 05:30 Anion Gap 14.5 (7.0-16.0) 07/04/18 05:30 BUN 10 mg/dL (7-25) 07/04/18 05:30 Creatinine 0.7 mg/dL (0.7-1.3) 07/04/18 05:30 Est GFR ( Amer) > 60.0 ml/min (>90) 07/04/18 05:30 Est GFR (Non-Af Amer) > 60.0 ml/min 07/04/18 05:30 BUN/Creatinine Ratio 14.3 07/04/18 05:30 Glucose 79 mg/dL (70-105) 07/04/18 05:30 Calcium 9.0 mg/dL (8.6-10.3) 07/04/18 05:30 Total Bilirubin 0.4 mg/dL (0.3-1.0) 07/02/18 06:16 AST 9 U/L (13-39) L 07/02/18 06:16 ALT 7 U/L (7-52) 07/02/18 06:16 Alkaline Phosphatase 44 U/L (34-104) 07/02/18 06:16 Total Protein 6.4 gm/dL (6.0-8.3) 07/02/18 06:16 Albumin 3.5 gm/dL (4.2-5.5) L 07/02/18 06:16 Globulin 2.9 gm/dL 07/02/18 06:16 Albumin/Globulin Ratio 1.2 (1.0-1.8) 07/02/18 06:16 Urine Source CLEAN C 06/30/18 22:30 Urine Color YELLOW 06/30/18 22:30 Urine Clarity CLEAR (CLEAR) 06/30/18 22:30 Urine pH 8.0 (4.6 - 8.0) 06/30/18 22:30 Ur Specific [place] 1.015 (1.005-1.030) 06/30/18 22:30 Urine Protein NEGATIVE mg/dL (NEGATIVE) 06/30/18 22:30 Urine Glucose (UA) NEGATIVE mg/dL (NEGATIVE) 06/30/18 22:30 Urine Ketones NEGATIVE mg/dL (NEGATIVE) 06/30/18 22:30 Urine Blood NEGATIVE (NEGATIVE) 06/30/18 22:30 Urine Nitrate NEGATIVE (NEGATIVE) 06/30/18 22:30 Urine Bilirubin NEGATIVE (NEGATIVE) 06/30/18 22:30 Urine Urobilinogen 0.2 E.U./dL (0.2 - 1.0) 06/30/18 22:30 Ur Leukocyte Esterase NEGATIVE (NEGATIVE) 06/30/18 22:30 Vancomycin Trough 11.2 ug/mL (5-10) H 07/02/18 12:00 - Physical Exam Vitals and I&O: Vital Signs Temp 98.5 F 07/04/18 08:00 Pulse 57 07/04/18 08:00 Resp 19 07/04/18 08:00 BP 93/55 07/04/18 08:00 Pulse Ox 96 07/04/18 08:00 Intake & Output 07/03/18 07/04/18 07/04/18 18:59 06:59 18:59 Intake Total 700 1000 Output Total 2000 800 Balance -1300 200 Weight (lbs) 113.398 kg 113.398 kg Intake: Intake, IV Amount 500 600 Piperacillin Sodium/ 50 Tazobact 3.375 gm In Sodium Chloride 0.9% 50 ml @ 100 mls/hr IV Q6H [facility] Rx#:[id number] Piperacillin Sodium/ 50 Tazobact 3.375 gm In Sodium Chloride 0.9% 50 ml @ 100 mls/hr IV Q6HR [facility] Rx#:[id number] Vancomycin HCl 1.5 gm In 500 500 Sodium Chloride 0.9% 500 ml @ 250 mls/hr IV Q12H [facility] Rx#:[id number] Oral 200 400 Output: Urine 2000 800 Other: # Voids 4 2 # Bowel Movements 1 Weight Source Bedscale Bedscale Active Medications: Current Medications [place] Oil/Citizen Of [place] Balsam/Trypsin (Venelex) 1 appl TP DAILY [facility] Stop: 08/31/18 12:59 Last Admin: 07/04/18 08:53 Dose: 1 appl Gabapentin (Neurontin) 300 mg PO BID [facility] Stop: 08/31/18 08:59 Last Admin: 07/04/18 08:53 Dose: 300 mg Vancomycin HCl 1.5 gm/ Sodium (Chloride) 500 mls @ 250 mls/hr IV Q12H [facility] Stop: 08/30/18 12:59 Last Infusion: 07/04/18 03:32 Dose: Infused Piperacillin Sod/Tazobactam (Sod 3.375 gm/ Sodium Chloride) 50 mls @ 100 mls/ hr IV Q6H [facility] Stop: 09/02/18 03:59 Last Admin: 07/04/18 09:46 Dose: 100 mls/hr Ibuprofen (Motrin) 400 mg PO QID PRN PRN Reason: Pain (Mild) Stop: 08/30/18 18:58 Miscellaneous (Zosyn Iv Per Pharmacy) 1 ea MC PRN PRN PRN Reason: PROTOCOL Stop: 08/30/18 11:21 Miscellaneous (Vancomycin Iv Per Pharmacy) 1 ea MC PRN PRN PRN Reason: Leg Swelling Stop: 08/30/18 11:21 Morphine Sulfate (Morphine) 1 mg IVP Q2HR PRN PRN Reason: Pain (Moderate) Stop: 08/30/18 19:00 Morphine Sulfate (Morphine) 2 mg IVP Q4HR PRN PRN Reason: Pain (Severe) Stop: 08/30/18 19:06 Last Admin: 07/02/18 20:57 Dose: 2 mg Ondansetron HCl (Zofran Odt) 4 mg PO Q6H PRN PRN Reason: Nausea / Vomiting Stop: 08/30/18 19:42 Zolpidem Tartrate (Ambien) 5 mg PO HS PRN PRN Reason: Insomnia Stop: 09/01/18 22:01 Last Admin: 07/03/18 22:11 Dose: 5 mg Physical Exam: 38 y/o homeless male patient has hx of cerebral palsy. Patient c/o severe bilateral knee pain and bilateral knee wounds with some skin lesions- healing well. General: weak, other (Severe neuropathy.) HEENT: NC/AT, PERRLA Neck: Supple, No JVD Lungs: CTAB Cardiovascular: RRR, Normal S1 Abdomen: soft, non-tender Extremities: edema, pain, other Neurological: alert, muscle weakness, unsteady (Multiple skin lesions on bilateral leg pain, Hx of Arthritis.) Internal Medicine Assmt/Plan - Assessment Assessment: Arthritis Severe Neuropathy Severe Bilateral leg pain Bilateral leg wounds with some skin lesions Hx of Cerebral palsy - Plan Plan: Continuation of care Monitor Vitals, Labs, Diet Continue IV antibiotics and meds as directed Fall precaution Followup with Dr. Sharan Harrison and Dr. Lupillo Harrison Pain management Continue present care management Nutritional Asmnt/Malnutr-PDOC - Dietary Evaluation Malnutrition Findings (Please click <Entered> for more info): Nutritional Asmnt/Malnutrition Start: 07/02/18 10: 55 Text: Status: Complete Freq: Protocol: Document 07/03/18 16:20 LCHENG (Rec: 07/03/18 16:38 [email or web address]) Nutritional Asmnt/Malnutrition Patient General Information Nutritional Screening Moderate Risk Diagnosis bilateral lower extremities non healing wounds Pertinent Medical Hx/Surgical Hx CP, severe neuropathy, bilateral leg wounds, cellulitis, homeless status Subjective Information Consult received for BLE wounds. Pt seen in bed having lunch. Pt stated he does not eat red meat. PO intake 75-100 %. Current Diet Order/ Nutrition Support regular Pertinent Medications vancomycin, piperacillin, , vancomycin Pertinent Labs 07/03 Cl 108 Nutritional Hx/Data Height 1.78 m Height (Calculated Centimeters) 177.8 Current Weight (lbs) 113.398 kg Weight (Calculated Kilograms) 113.4 Weight (Calculated Grams) 330471.1 [place] Body Weight 166 Body Mass Index (BMI) 35.9 Weight Status Obese GI Symptoms GI Symptoms None Last BM not indicated Difficult in: None Skin Integrity/Comment: venous insufficiency ulcer multiple sites. Daryl 22 Current %PO Good (75-100%) Estimated Nutritional Goals BEE in Kcals: Adj wt of IBW Calories/Kcals/Kg 23-27 Kcals Calculated 8991-7966 Protein: Adj wt of IBW Protein g/k.8-1 Protein Calculated 68-85 Fluid: ml 5-229ml (1ml/kcal) Nutritional Problem 1. Problem Problem increased nutrition needs Etiology impaired skin integrity Signs/Symptoms: venous insufficiency ulcer multiple sites Intervention/Recommendation Comments 1. Continue with regular diet as ordered. Add Benigno BID for wound heailng. 2. Monitor PO intake, wt, labs and skin integrity 3. F/U as moderate risk in 3-5 days Expected Outcomes/Goals Expected Outcomes/Goals 1. PO intake to meet at least 75% of nutritional needs. 2. Wt stability, skin integrity to improve, labs to approach WNL.
[2018-07-04 18:35] LABS: MEAN CELL VOLUME 65.5 fl (80-99)
[2018-07-05] MEDS: Vancomycin HCl 1.5 GM in Sodium Chloride 0.9% 500 ML IV SCH ×2 (01:00→14:46)
[2018-07-05] MEDS: Venelex 60gm Tube TP SCH (09:00)
--- NOTE | 2018-07-05 14:45 | Internal Medicine Prog Note ---
Internal Medicine Subjective - Subjective Service Date: 07/05/18 Patient is:: awake Patient Complaints of:: other (Hx of Cerebral palsy.) Per staff patient has:: no episodes of fall, other (Severe Neuropathy.) Internal Medicine Objective - Results Result Diagrams: 07/04/18 05:30 07/04/18 05:30 Recent Labs: Laboratory Last Values WBC 5.9 Th/cmm (4.8-10.8) 07/04/18 05:30 RBC 5.03 Mil/cmm (4.30-5.70) 07/04/18 05:30 Hgb 10.4 gm/dL (12-16) L 07/04/18 05:30 Hct 33.0 % (41.0-60) L 07/04/18 05:30 MCV 65.5 fl (80-99) L 07/04/18 05:30 MCH 20.6 pg (26.0-30.0) L 07/04/18 05:30 MCHC Differential 31.5 pg (28.0-36.0) 07/04/18 05:30 RDW 17.3 % (11.5-20.0) 07/04/18 05:30 Plt Count 240 Th/cmm (150-400) 07/04/18 05:30 MPV 8.9 fl 07/04/18 05:30 Add Manual Diff YES 07/03/18 05:40 Neutrophils % 70.8 % (40.0-80.0) 07/04/18 05:30 Band Neutrophils % 0 % (0-10) 07/02/18 06:16 Lymphocytes % 19.2 % (20.0-50.0) L 07/04/18 05:30 Monocytes % 5.3 % (2.0-10.0) 07/04/18 05:30 Eosinophils % 4.1 % (0.0-5.0) 07/04/18 05:30 Basophils % 0.6 % (0.0-2.0) 07/04/18 05:30 Neutrophils (Manual) 70 % (40-80) 07/03/18 05:40 Lymphocytes 21 % (20-50) 07/03/18 05:40 Monocytes 6 % (2-10) 07/03/18 05:40 Eosinophils 2 % (0-5) 07/03/18 05:40 Basophils 1 % (0-3) 07/03/18 05:40 Hypochromia 2+ 07/03/18 05:40 Platelet Estimate ADEQUATE (NORMAL) 07/03/18 05:40 Microcytosis 2+ 07/03/18 05:40 Sodium 139 mEq/L (136-145) 07/04/18 05:30 Potassium 4.2 mEq/L (3.5-5.1) 07/04/18 05:30 Chloride 107 mEq/L (98-107) 07/04/18 05:30 Carbon Dioxide 21.7 mEq/L (21.0-31.0) 07/04/18 05:30 Anion Gap 14.5 (7.0-16.0) 07/04/18 05:30 BUN 10 mg/dL (7-25) 07/04/18 05:30 Creatinine 0.7 mg/dL (0.7-1.3) 07/04/18 05:30 Est GFR ( Amer) > 60.0 ml/min (>90) 07/04/18 05:30 Est GFR (Non-Af Amer) > 60.0 ml/min 07/04/18 05:30 BUN/Creatinine Ratio 14.3 07/04/18 05:30 Glucose 79 mg/dL (70-105) 07/04/18 05:30 Calcium 9.0 mg/dL (8.6-10.3) 07/04/18 05:30 Total Bilirubin 0.4 mg/dL (0.3-1.0) 07/02/18 06:16 AST 9 U/L (13-39) L 07/02/18 06:16 ALT 7 U/L (7-52) 07/02/18 06:16 Alkaline Phosphatase 44 U/L (34-104) 07/02/18 06:16 Total Protein 6.4 gm/dL (6.0-8.3) 07/02/18 06:16 Albumin 3.5 gm/dL (4.2-5.5) L 07/02/18 06:16 Globulin 2.9 gm/dL 07/02/18 06:16 Albumin/Globulin Ratio 1.2 (1.0-1.8) 07/02/18 06:16 Urine Source CLEAN C 06/30/18 22:30 Urine Color YELLOW 06/30/18 22:30 Urine Clarity CLEAR (CLEAR) 06/30/18 22:30 Urine pH 8.0 (4.6 - 8.0) 06/30/18 22:30 Ur Specific [place] 1.015 (1.005-1.030) 06/30/18 22:30 Urine Protein NEGATIVE mg/dL (NEGATIVE) 06/30/18 22:30 Urine Glucose (UA) NEGATIVE mg/dL (NEGATIVE) 06/30/18 22:30 Urine Ketones NEGATIVE mg/dL (NEGATIVE) 06/30/18 22:30 Urine Blood NEGATIVE (NEGATIVE) 06/30/18 22:30 Urine Nitrate NEGATIVE (NEGATIVE) 06/30/18 22:30 Urine Bilirubin NEGATIVE (NEGATIVE) 06/30/18 22:30 Urine Urobilinogen 0.2 E.U./dL (0.2 - 1.0) 06/30/18 22:30 Ur Leukocyte Esterase NEGATIVE (NEGATIVE) 06/30/18 22:30 Vancomycin Trough 11.2 ug/mL (5-10) H 07/02/18 12:00 - Physical Exam Vitals and I&O: Vital Signs Temp 99 F 07/05/18 11:24 Pulse 60 07/05/18 11:24 Resp 20 07/05/18 11:24 BP 93/50 07/05/18 11:24 Pulse Ox 97 07/05/18 11:24 Intake & Output 07/04/18 07/05/18 07/05/18 18:59 06:59 18:59 Intake Total 550 1040 Output Total 600 Balance 550 440 Weight (lbs) 250 lb Intake: Intake, IV Amount 550 640 Piperacillin Sodium/ 50 140 Tazobact 3.375 gm In Sodium Chloride 0.9% 50 ml @ 100 mls/hr IV Q6H [facility] Rx#:[id number] Vancomycin HCl 1.5 gm In 500 500 Sodium Chloride 0.9% 500 ml @ 250 mls/hr IV Q12H [facility] Rx#:[id number] Oral 400 Output: Urine 600 Stool 0 Other: Weight Source Bedscale Active Medications: Current Medications [place] Oil/[place] Balsam/Trypsin (Venelex) 1 appl TP DAILY [facility] Stop: 08/31/18 12:59 Last Admin: 07/05/18 09:00 Dose: 1 appl Gabapentin (Neurontin) 300 mg PO BID [facility] Stop: 08/31/18 08:59 Last Admin: 07/05/18 08:51 Dose: 300 mg Vancomycin HCl 1.5 gm/ Sodium (Chloride) 500 mls @ 250 mls/hr IV Q12H [facility] Stop: 08/30/18 12:59 Last Infusion: 07/05/18 03:56 Dose: Infused Piperacillin Sod/Tazobactam (Sod 3.375 gm/ Sodium Chloride) 50 mls @ 100 mls/ hr IV Q6H [facility] Stop: 09/02/18 03:59 Last Admin: 07/05/18 09:55 Dose: 100 mls/hr Ibuprofen (Motrin) 400 mg PO QID PRN PRN Reason: Pain (Mild) Stop: 08/30/18 18:58 Last Admin: 07/05/18 08:54 Dose: 400 mg Miscellaneous (Zosyn Iv Per Pharmacy) 1 ea PRN PRN PRN Reason: PROTOCOL Stop: 08/30/18 11:21 Miscellaneous (Vancomycin Iv Per Pharmacy) 1 ea PRN PRN PRN Reason: Leg Swelling Stop: 08/30/18 11:21 Morphine Sulfate (Morphine) 1 mg IVP Q2HR PRN PRN Reason: Pain (Moderate) Stop: 08/30/18 19:00 Morphine Sulfate (Morphine) 2 mg IVP Q4HR PRN PRN Reason: Pain (Severe) Stop: 08/30/18 19:06 Last Admin: 07/02/18 20:57 Dose: 2 mg Ondansetron HCl (Zofran Odt) 4 mg PO Q6H PRN PRN Reason: Nausea / Vomiting Stop: 08/30/18 19:42 Zolpidem Tartrate (Ambien) 5 mg PO HS PRN PRN Reason: Insomnia Stop: 09/01/18 22:01 Last Admin: 07/03/18 22:11 Dose: 5 mg General: weak, other (Severe neuropathy.) HEENT: NC/AT, PERRLA Neck: Supple, No JVD Lungs: CTAB Cardiovascular: RRR, Normal S1 Abdomen: soft, non-tender Extremities: edema, pain, other Neurological: alert, muscle weakness, unsteady (Multiple skin lesions on bilateral leg pain, Hx of Arthritis.) Internal Medicine Assmt/Plan - Assessment Assessment: Arthritis Severe Neuropathy Severe Bilateral leg pain 2/2 cellulitis Hx of Cerebral palsy - Plan Plan: continue ivabx as per ID wound care am labs continue current plan of care placement issues Nutritional Asmnt/Malnutr-PDOC - Dietary Evaluation Malnutrition Findings (Please click <Entered> for more info): Nutritional Asmnt/Malnutrition Start: 07/02/18 10: 55 Text: Status: Complete Freq: Protocol: Document 07/03/18 16:20 [email or web address] (Rec: 07/03/18 16:38 [email or web address]) Nutritional Asmnt/Malnutrition Patient General Information Nutritional Screening Moderate Risk Diagnosis bilateral lower extremities non healing wounds Pertinent Medical Hx/Surgical Hx CP, severe neuropathy, bilateral leg wounds, cellulitis, homeless status Subjective Information Consult received for BLE wounds. Pt seen in bed having lunch. Pt stated he does not eat red meat. PO intake 75-100 %. Current Diet Order/ Nutrition Support regular Pertinent Medications vancomycin, piperacillin, , vancomycin Pertinent Labs 07/03 Cl 108 Nutritional Hx/Data Height 5 ft 10 in Height (Calculated Centimeters) 177.8 Current Weight (lbs) 250 lb Weight (Calculated Kilograms) 113.4 Weight (Calculated Grams) 027242.1 [place] Body Weight 166 Body Mass Index (BMI) 35.9 Weight Status Obese GI Symptoms GI Symptoms None Last BM not indicated Difficult in: None Skin Integrity/Comment: venous insufficiency ulcer multiple sites. Daryl 22 Current %PO Good (75-100%) Estimated Nutritional Goals BEE in Kcals: Adj wt of IBW Calories/Kcals/Kg 23-27 Kcals Calculated 1120-6976 Protein: Adj wt of IBW Protein g/k.8-1 Protein Calculated 68-85 Fluid: ml 1955-2295ml (1ml/kcal) Nutritional Problem 1. Problem Problem increased nutrition needs Etiology impaired skin integrity Signs/Symptoms: venous insufficiency ulcer multiple sites Intervention/Recommendation Comments 1. Continue with regular diet as ordered. Add Benigno BID for wound heailng. 2. Monitor PO intake, wt, labs and skin integrity 3. F/U as moderate risk in 3-5 days Expected Outcomes/Goals Expected Outcomes/Goals 1. PO intake to meet at least 75% of nutritional needs. 2. Wt stability, skin integrity to improve, labs to approach WNL.
--- NOTE | 2018-07-05 22:55 | Infectious Disease Prog Note ---
Infectious Disease Subjective - Review of Systems Service Date: 07/05/18 Subjective: There is no new change, no fever. Infectious Disease Objective - Results Result Diagrams: 07/04/18 05:30 07/04/18 05:30 Recent Labs: Laboratory Last Values WBC 5.9 Th/cmm (4.8-10.8) 07/04/18 05:30 RBC 5.03 Mil/cmm (4.30-5.70) 07/04/18 05:30 Hgb 10.4 gm/dL (12-16) L 07/04/18 05:30 Hct 33.0 % (41.0-60) L 07/04/18 05:30 MCV 65.5 fl (80-99) L 07/04/18 05:30 MCH 20.6 pg (26.0-30.0) L 07/04/18 05:30 MCHC Differential 31.5 pg (28.0-36.0) 07/04/18 05:30 RDW 17.3 % (11.5-20.0) 07/04/18 05:30 Plt Count 240 Th/cmm (150-400) 07/04/18 05:30 MPV 8.9 fl 07/04/18 05:30 Add Manual Diff YES 07/03/18 05:40 Neutrophils % 70.8 % (40.0-80.0) 07/04/18 05:30 Band Neutrophils % 0 % (0-10) 07/02/18 06:16 Lymphocytes % 19.2 % (20.0-50.0) L 07/04/18 05:30 Monocytes % 5.3 % (2.0-10.0) 07/04/18 05:30 Eosinophils % 4.1 % (0.0-5.0) 07/04/18 05:30 Basophils % 0.6 % (0.0-2.0) 07/04/18 05:30 Neutrophils (Manual) 70 % (40-80) 07/03/18 05:40 Lymphocytes 21 % (20-50) 07/03/18 05:40 Monocytes 6 % (2-10) 07/03/18 05:40 Eosinophils 2 % (0-5) 07/03/18 05:40 Basophils 1 % (0-3) 07/03/18 05:40 Hypochromia 2+ 07/03/18 05:40 Platelet Estimate ADEQUATE (NORMAL) 07/03/18 05:40 Microcytosis 2+ 07/03/18 05:40 Sodium 139 mEq/L (136-145) 07/04/18 05:30 Potassium 4.2 mEq/L (3.5-5.1) 07/04/18 05:30 Chloride 107 mEq/L (98-107) 07/04/18 05:30 Carbon Dioxide 21.7 mEq/L (21.0-31.0) 07/04/18 05:30 Anion Gap 14.5 (7.0-16.0) 07/04/18 05:30 BUN 10 mg/dL (7-25) 07/04/18 05:30 Creatinine 0.7 mg/dL (0.7-1.3) 07/04/18 05:30 Est GFR ( Amer) > 60.0 ml/min (>90) 07/04/18 05:30 Est GFR (Non-Af Amer) > 60.0 ml/min 07/04/18 05:30 BUN/Creatinine Ratio 14.3 07/04/18 05:30 Glucose 79 mg/dL (70-105) 07/04/18 05:30 Calcium 9.0 mg/dL (8.6-10.3) 07/04/18 05:30 Total Bilirubin 0.4 mg/dL (0.3-1.0) 07/02/18 06:16 AST 9 U/L (13-39) L 07/02/18 06:16 ALT 7 U/L (7-52) 07/02/18 06:16 Alkaline Phosphatase 44 U/L (34-104) 07/02/18 06:16 Total Protein 6.4 gm/dL (6.0-8.3) 07/02/18 06:16 Albumin 3.5 gm/dL (4.2-5.5) L 07/02/18 06:16 Globulin 2.9 gm/dL 07/02/18 06:16 Albumin/Globulin Ratio 1.2 (1.0-1.8) 07/02/18 06:16 Urine Source CLEAN C 06/30/18 22:30 Urine Color YELLOW 06/30/18 22:30 Urine Clarity CLEAR (CLEAR) 06/30/18 22:30 Urine pH 8.0 (4.6 - 8.0) 06/30/18 22:30 Ur Specific [place] 1.015 (1.005-1.030) 06/30/18 22:30 Urine Protein NEGATIVE mg/dL (NEGATIVE) 06/30/18 22:30 Urine Glucose (UA) NEGATIVE mg/dL (NEGATIVE) 06/30/18 22:30 Urine Ketones NEGATIVE mg/dL (NEGATIVE) 06/30/18 22:30 Urine Blood NEGATIVE (NEGATIVE) 06/30/18 22:30 Urine Nitrate NEGATIVE (NEGATIVE) 06/30/18 22:30 Urine Bilirubin NEGATIVE (NEGATIVE) 06/30/18 22:30 Urine Urobilinogen 0.2 E.U./dL (0.2 - 1.0) 06/30/18 22:30 Ur Leukocyte Esterase NEGATIVE (NEGATIVE) 06/30/18 22:30 Vancomycin Trough 11.2 ug/mL (5-10) H 07/02/18 12:00 - Physical Exam Vitals and I&O: Vital Signs Temp 98.3 F 07/05/18 20:00 Pulse 51 07/05/18 20:00 Resp 18 07/05/18 20:00 BP 94/47 07/05/18 20:00 Pulse Ox 97 07/05/18 20:00 Intake & Output 07/05/18 07/05/18 07/06/18 06:59 18:59 06:59 Intake Total 1040 100 Output Total 600 Balance 440 100 Weight (lbs) 113.398 kg Intake: Intake, IV Amount 640 100 Piperacillin Sodium/ 140 100 Tazobact 3.375 gm In Sodium Chloride 0.9% 50 ml @ 100 mls/hr IV Q6H [facility] Rx#:[id number] Vancomycin HCl 1.5 gm In 500 Sodium Chloride 0.9% 500 ml @ 250 mls/hr IV Q12H [facility] Rx#:[id number] Oral 400 Output: Urine 600 Stool 0 Other: Weight Source Bedscale Active Medications: Current Medications [place] Oil/[place] Balsam/Trypsin (Venelex) 1 appl TP DAILY RAMIN Stop: 08/31/18 12:59 Last Admin: 07/05/18 09:00 Dose: 1 appl Gabapentin (Neurontin) 300 mg PO BID RAMIN Stop: 08/31/18 08:59 Last Admin: 07/05/18 17:29 Dose: 300 mg Vancomycin HCl 1.5 gm/ Sodium (Chloride) 500 mls @ 250 mls/hr IV Q12H RAMIN Stop: 08/30/18 12:59 Last Admin: 07/05/18 14:46 Dose: 100 mls/hr Piperacillin Sod/Tazobactam (Sod 3.375 gm/ Sodium Chloride) 50 mls @ 100 mls/ hr IV Q6H RAMIN Stop: 09/02/18 03:59 Last Admin: 07/05/18 22:29 Dose: 100 mls/hr Ibuprofen (Motrin) 400 mg PO QID PRN PRN Reason: Pain (Mild) Stop: 08/30/18 18:58 Last Admin: 07/05/18 14:49 Dose: 400 mg Miscellaneous (Zosyn Iv Per Pharmacy) 1 ea PRN PRN PRN Reason: PROTOCOL Stop: 08/30/18 11:21 Miscellaneous (Vancomycin Iv Per Pharmacy) 1 ea PRN PRN PRN Reason: Leg Swelling Stop: 08/30/18 11:21 Morphine Sulfate (Morphine) 1 mg IVP Q2HR PRN PRN Reason: Pain (Moderate) Stop: 08/30/18 19:00 Morphine Sulfate (Morphine) 2 mg IVP Q4HR PRN PRN Reason: Pain (Severe) Stop: 08/30/18 19:06 Last Admin: 07/02/18 20:57 Dose: 2 mg Ondansetron HCl (Zofran Odt) 4 mg PO Q6H PRN PRN Reason: Nausea / Vomiting Stop: 08/30/18 19:42 Zolpidem Tartrate (Ambien) 5 mg PO HS PRN PRN Reason: Insomnia Stop: 09/01/18 22:01 Last Admin: 07/03/18 22:11 Dose: 5 mg General: no acute distress, well developed, well nourished HEENT: atraumatic, normocephalic, PERRLA, EOMI Neck: supple, no thyromegaly, no lymphadenopathy Cardiovascular: S1S2, regular Lungs: clear to auscultation bilaterally, clear to percussion Abdomen: soft, no tender, no distended, no mass Extremities: other (right knee wound), no cyanosis, no clubbing, no edema Neurological: awake, alert, oriented Infectious Disease Assmt/Plan - Assessment Assessment: 1. Right leg wound and right leg cellulitis. 2. Left leg wound and left leg cellulitis. 3. Cerebral palsy. 4. Arthritis. - Plan Plan: Dc vancomycin and continue Zosyn/wound care. Nutritional Asmnt/Malnutr-PDOC - Dietary Evaluation Malnutrition Findings (Please click <Entered> for more info): Nutritional Asmnt/Malnutrition Start: 07/02/18 10: 55 Text: Status: Complete Freq: Protocol: Document 07/03/18 16:20 [email or web address] (Rec: 07/03/18 16:38 [email or web address]) Nutritional Asmnt/Malnutrition Patient General Information Nutritional Screening Moderate Risk Diagnosis bilateral lower extremities non healing wounds Pertinent Medical Hx/Surgical Hx CP, severe neuropathy, bilateral leg wounds, cellulitis, homeless status Subjective Information Consult received for BLE wounds. Pt seen in bed having lunch. Pt stated he does not eat red meat. PO intake 75-100 %. Current Diet Order/ Nutrition Support regular Pertinent Medications vancomycin, piperacillin, , vancomycin Pertinent Labs 07/03 Cl 108 Nutritional Hx/Data Height 1.78 m Height (Calculated Centimeters) 177.8 Current Weight (lbs) 113.398 kg Weight (Calculated Kilograms) 113.4 Weight (Calculated Grams) 864555.1 [place] Body Weight 166 Body Mass Index (BMI) 35.9 Weight Status Obese GI Symptoms GI Symptoms None Last BM not indicated Difficult in: None Skin Integrity/Comment: venous insufficiency ulcer multiple sites. Daryl 22 Current %PO Good (75-100%) Estimated Nutritional Goals BEE in Kcals: Adj wt of IBW Calories/Kcals/Kg 23-27 Kcals Calculated 0446-8711 Protein: Adj wt of IBW Protein g/k.8-1 Protein Calculated 68-85 Fluid: ml 1955-2295ml (1ml/kcal) Nutritional Problem 1. Problem Problem increased nutrition needs Etiology impaired skin integrity Signs/Symptoms: venous insufficiency ulcer multiple sites Intervention/Recommendation Comments 1. Continue with regular diet as ordered. Add Benigno BID for wound heailng. 2. Monitor PO intake, wt, labs and skin integrity 3. F/U as moderate risk in 3-5 days Expected Outcomes/Goals Expected Outcomes/Goals 1. PO intake to meet at least 75% of nutritional needs. 2. Wt stability, skin integrity to improve, labs to approach WNL.
[2018-07-06 06:49] LABS: HEMATOCRIT 33.8 % (41.0-60); HEMOGLOBIN 10.5 gm/dL (12-16); MEAN CORPUSCULAR HEMOGLOBIN 20.2 pg (26.0-30.0); MEAN CORPUSCULAR HGB CONC 31.1 pg (28.0-36.0); MEAN PLATELET VOLUME 8.7 fl; PLATELET COUNT 292 Th/cmm (150-400); RED CELL DISTRIBUTION WIDTH 17.7 % (11.5-20.0)
[2018-07-06 06:53] LABS: MEAN CELL VOLUME 65.1 fl (80-99)
[2018-07-06 06:56] LABS: ANION GAP 12.2 (7.0-16.0); BUN - UREA NITROGEN 8 mg/dL (7-25); CALCIUM SERUM 9.1 mg/dL (8.6-10.3); CARBON DIOXIDE 22.7 mEq/L (21.0-31.0); CHLORIDE 106 mEq/L (98-107); CREATININE - SERUM 0.8 mg/dL (0.7-1.3); GFR AFRICAN-AMERICAN > 60.0 ml/min (>90); GFR NON AFRICAN-AMERICAN > 60.0 ml/min; GLUCOSE 81 mg/dL (70-105); POTASSIUM SERUM 3.9 mEq/L (3.5-5.1); SODIUM SERUM 137 mEq/L (136-145)
[2018-07-06 07:37] LABS: EOSINOPHIL 2 % (0-5); HYPOCHROMIA 2+; LYMPHOCYTE 20 % (20-50); MONOCYTE 5 % (2-10); NEUTROPHILS 73 % (40-80); PLATELET ESTIMATE ADEQUATE (NORMAL)
[2018-07-06] MEDS: Venelex 60gm Tube TP SCH (08:53)
--- NOTE | 2018-07-06 12:11 | Internal Medicine Prog Note ---
Internal Medicine Subjective - Subjective Patient seen and examined:: chart reviewed Patient is:: awake, other (in no distress, no fever) Patient Complaints of:: other (Hx of Cerebral palsy.) Per staff patient has:: no adverse event, no episodes of fall, other (Severe Neuropathy.) Internal Medicine Objective - Results Result Diagrams: 07/06/18 06:05 07/06/18 06:05 Recent Labs: Laboratory Last Values WBC 6.0 Th/cmm (4.8-10.8) 07/06/18 06:05 RBC 5.20 Mil/cmm (4.30-5.70) 07/06/18 06:05 Hgb 10.5 gm/dL (12-16) L 07/06/18 06:05 Hct 33.8 % (41.0-60) L 07/06/18 06:05 MCV 65.1 fl (80-99) L 07/06/18 06:05 MCH 20.2 pg (26.0-30.0) L 07/06/18 06:05 MCHC Differential 31.1 pg (28.0-36.0) 07/06/18 06:05 RDW 17.7 % (11.5-20.0) 07/06/18 06:05 Plt Count 292 Th/cmm (150-400) 07/06/18 06:05 MPV 8.7 fl 07/06/18 06:05 Add Manual Diff YES 07/06/18 06:05 Neutrophils % BODYBUILDER 07/06/18 06:05 Band Neutrophils % 0 % (0-10) 07/02/18 06:16 Lymphocytes % BODYBUILDER 07/06/18 06:05 Monocytes % BODYBUILDER 07/06/18 06:05 Eosinophils % BODYBUILDER 07/06/18 06:05 Basophils % BODYBUILDER 07/06/18 06:05 Neutrophils (Manual) 73 % (40-80) 07/06/18 06:05 Lymphocytes 20 % (20-50) 07/06/18 06:05 Monocytes 5 % (2-10) 07/06/18 06:05 Eosinophils 2 % (0-5) 07/06/18 06:05 Basophils 1 % (0-3) 07/03/18 05:40 Hypochromia 2+ 07/06/18 06:05 Platelet Estimate ADEQUATE (NORMAL) 07/06/18 06:05 Microcytosis 3+ 03/31/19 06:05 Sodium 137 mEq/L (136-145) 07/06/18 06:05 Potassium 3.9 mEq/L (3.5-5.1) 07/06/18 06:05 Chloride 106 mEq/L (98-107) 07/06/18 06:05 Carbon Dioxide 22.7 mEq/L (21.0-31.0) 07/06/18 06:05 Anion Gap 12.2 (7.0-16.0) 07/06/18 06:05 BUN 8 mg/dL (7-25) 07/06/18 06:05 Creatinine 0.8 mg/dL (0.7-1.3) 07/06/18 06:05 Est GFR ( Amer) > 60.0 ml/min (>90) 07/06/18 06:05 Est GFR (Non-Af Amer) > 60.0 ml/min 07/06/18 06:05 BUN/Creatinine Ratio 10.0 07/06/18 06:05 Glucose 81 mg/dL (70-105) 07/06/18 06:05 Calcium 9.1 mg/dL (8.6-10.3) 07/06/18 06:05 Total Bilirubin 0.4 mg/dL (0.3-1.0) 07/02/18 06:16 AST 9 U/L (13-39) L 07/02/18 06:16 ALT 7 U/L (7-52) 07/02/18 06:16 Alkaline Phosphatase 44 U/L (34-104) 07/02/18 06:16 Total Protein 6.4 gm/dL (6.0-8.3) 07/02/18 06:16 Albumin 3.5 gm/dL (4.2-5.5) L 07/02/18 06:16 Globulin 2.9 gm/dL 07/02/18 06:16 Albumin/Globulin Ratio 1.2 (1.0-1.8) 07/02/18 06:16 Urine Source CLEAN C 06/30/18 22:30 Urine Color YELLOW 06/30/18 22:30 Urine Clarity CLEAR (CLEAR) 06/30/18 22:30 Urine pH 8.0 (4.6 - 8.0) 06/30/18 22:30 Ur Specific [place] 1.015 (1.005-1.030) 06/30/18 22:30 Urine Protein NEGATIVE mg/dL (NEGATIVE) 06/30/18 22:30 Urine Glucose (UA) NEGATIVE mg/dL (NEGATIVE) 06/30/18 22:30 Urine Ketones NEGATIVE mg/dL (NEGATIVE) 06/30/18 22:30 Urine Blood NEGATIVE (NEGATIVE) 06/30/18 22:30 Urine Nitrate NEGATIVE (NEGATIVE) 06/30/18 22:30 Urine Bilirubin NEGATIVE (NEGATIVE) 06/30/18 22:30 Urine Urobilinogen 0.2 E.U./dL (0.2 - 1.0) 06/30/18 22:30 Ur Leukocyte Esterase NEGATIVE (NEGATIVE) 06/30/18 22:30 Vancomycin Trough 11.2 ug/mL (5-10) H 07/02/18 12:00 - Physical Exam Vitals and I&O: Vital Signs Temp 98.3 F 07/06/18 12:00 Pulse 63 07/06/18 12:00 Resp 20 07/06/18 12:00 BP 102/49 07/06/18 12:00 Pulse Ox 99 07/06/18 12:00 Intake & Output 07/05/18 07/06/18 07/06/18 18:59 06:59 18:59 Intake Total 100 500 Output Total 600 Balance 100 -100 Weight (lbs) 90.718 kg Intake: Intake, IV Amount 100 100 Piperacillin Sodium/ 100 100 Tazobact 3.375 gm In Sodium Chloride 0.9% 50 ml @ 100 mls/hr IV Q6H [facility] Rx#:[id number] Oral 400 Output: Urine 600 Other: Weight Source Bedscale Active Medications: Current Medications [place] Oil/[place] Balsam/Trypsin (Venelex) 1 appl TP DAILY RAMIN Stop: 08/31/18 12:59 Last Admin: 07/06/18 08:53 Dose: 1 appl Gabapentin (Neurontin) 300 mg PO BID RAMIN Stop: 08/31/18 08:59 Last Admin: 07/06/18 08:53 Dose: 300 mg Piperacillin Sod/Tazobactam (Sod 3.375 gm/ Sodium Chloride) 50 mls @ 100 mls/ hr IV Q6H RAMIN Stop: 09/02/18 03:59 Last Admin: 07/06/18 09:00 Dose: 100 mls/hr Ibuprofen (Motrin) 400 mg PO QID PRN PRN Reason: Pain (Mild) Stop: 08/30/18 18:58 Last Admin: 07/06/18 08:53 Dose: 400 mg Miscellaneous (Zosyn Iv Per Pharmacy) 1 ea MC PRN PRN PRN Reason: PROTOCOL Stop: 08/30/18 11:21 Morphine Sulfate (Morphine) 1 mg IVP Q2HR PRN PRN Reason: Pain (Moderate) Stop: 08/30/18 19:00 Morphine Sulfate (Morphine) 2 mg IVP Q4HR PRN PRN Reason: Pain (Severe) Stop: 08/30/18 19:06 Last Admin: 07/02/18 20:57 Dose: 2 mg Ondansetron HCl (Zofran Odt) 4 mg PO Q6H PRN PRN Reason: Nausea / Vomiting Stop: 08/30/18 19:42 Zolpidem Tartrate (Ambien) 5 mg PO HS PRN PRN Reason: Insomnia Stop: 09/01/18 22:01 Last Admin: 07/03/18 22:11 Dose: 5 mg Physical Exam: 38 y/o homeless male patient has hx of cerebral palsy. Patient c/o severe bilateral knee pain and bilateral knee wounds with some skin lesions- healing well. General: weak, other (Severe neuropathy.) HEENT: NC/AT, PERRLA Neck: Supple, No JVD Lungs: CTAB Cardiovascular: RRR, Normal S1 Abdomen: soft, non-tender Extremities: edema, pain, other Neurological: alert, muscle weakness, unsteady (Multiple skin lesions on bilateral leg pain, Hx of Arthritis.) Internal Medicine Assmt/Plan - Assessment Assessment: Arthritis Severe Neuropathy Severe Bilateral leg pain Bilateral leg wounds with some skin lesions Hx of Cerebral palsy - Plan Plan: Continuation of care Monitor Vitals, Labs, Diet Continue IV antibiotics and meds as directed Fall precaution Followup with Dr. Sharan Harrison and Dr. Lupillo Harrison Pain management Continue present care management Nutritional Asmnt/Malnutr-PDOC - Dietary Evaluation Malnutrition Findings (Please click <Entered> for more info): Nutritional Asmnt/Malnutrition Start: 07/02/18 10: 55 Text: Status: Complete Freq: Protocol: Document 07/03/18 16:20 [email or web address] (Rec: 07/03/18 16:38 [email or web address]) Nutritional Asmnt/Malnutrition Patient General Information Nutritional Screening Moderate Risk Diagnosis bilateral lower extremities non healing wounds Pertinent Medical Hx/Surgical Hx CP, severe neuropathy, bilateral leg wounds, cellulitis, homeless status Subjective Information Consult received for BLE wounds. Pt seen in bed having lunch. Pt stated he does not eat red meat. PO intake 75-100 %. Current Diet Order/ Nutrition Support regular Pertinent Medications vancomycin, piperacillin, , vancomycin Pertinent Labs 07/03 Cl 108 Nutritional Hx/Data Height 1.78 m Height (Calculated Centimeters) 177.8 Current Weight (lbs) 113.398 kg Weight (Calculated Kilograms) 113.4 Weight (Calculated Grams) 987104.1 [place] Body Weight 166 Body Mass Index (BMI) 35.9 Weight Status Obese GI Symptoms GI Symptoms None Last BM not indicated Difficult in: None Skin Integrity/Comment: venous insufficiency ulcer multiple sites. Daryl 22 Current %PO Good (75-100%) Estimated Nutritional Goals BEE in Kcals: Adj wt of IBW Calories/Kcals/Kg 23-27 Kcals Calculated 6222-7289 Protein: Adj wt of IBW Protein g/k.8-1 Protein Calculated 68-85 Fluid: ml 1955-2295ml (1ml/kcal) Nutritional Problem 1. Problem Problem increased nutrition needs Etiology impaired skin integrity Signs/Symptoms: venous insufficiency ulcer multiple sites Intervention/Recommendation Comments 1. Continue with regular diet as ordered. Add Benigno BID for wound heailng. 2. Monitor PO intake, wt, labs and skin integrity 3. F/U as moderate risk in 3-5 days Expected Outcomes/Goals Expected Outcomes/Goals 1. PO intake to meet at least 75% of nutritional needs. 2. Wt stability, skin integrity to improve, labs to approach WNL.
== END 2018-07-06 15:11 | DRG 872 ==
LOC: ER 21:14 → MSI 07-01 02:50
PROVIDERS: ADMIT Internal Medicine; ATTEND Internal Medicine
DX: A41.9 Sepsis, unspecified organism (principal); L03.116 Cellulitis of left lower limb; L03.115 Cellulitis of right lower limb; G80.9 Cerebral palsy, unspecified; G62.9 Polyneuropathy, unspecified; Z59.0 Homelessness; M19.90 Unspecified osteoarthritis, unspecified site; S81.802A Unspecified open wound, left lower leg, initial encounter; S81.801A Unspecified open wound, right lower leg, initial encounter; W18.30XA Fall on same level, unspecified, initial encounter; Y93.89 Activity, other specified; Y92.89 Other specified places as the place of occurrence of the external cause; Y99.8 Other external cause status; L89.890 Pressure ulcer of other site, unstageable; L89.620 Pressure ulcer of left heel, unstageable; L89.610 Pressure ulcer of right heel, unstageable
CPT/HCPCS: 36415-UA; 73560-TC-LT; 80048-TC; 80053-TC; 80202-TC; 81003-TC; 85007-TC; 85025-TC; A4217; J0696; J1885; J2270; J2543; J3370; J7030; J7040